=== PATIENT | male | born 1950 | race Caucasian/White ===

== ENCOUNTER → 2020-05-19 | Outpatient (CLI) | payer BC, MEDICARE ==
[~2020-05-19] MED LIST: ADALAT CC30 MG PO; ADALAT CC60 MG PO; ALBUTEROL2.5 MG/3 M INH; ALL DAY ALLERGY10 MG PO; AMARYL1 MG PO; ASMANEX HFA13 GM INH; ASPIRIN EC81 MG PO; CHLORTHALIDONE50 MG PO; CLARITIN10 MG PO; CLOPIDOGREL75 MG PO; COREG 25MG TAB25 MG PO; COZAAR 25MG TAB25 MG PO; DAPSONE100 MG PO; DICLOFENAC 1.5%; DUREZOL5 ML OP; EPIVIR10 MG/1 ML PO; FLONASE 0.05% N16 GM; FLORINEF 0.1 M0.1 MG PO; GLUCO BURST37.5 GM PO; HUMALOG100 UNIT/2 SQ; HUMALOG100 UNIT/3 SQ; HYGROTON TAB 2525 MG PO; LANSOPRAZOLE30 MG PO; LASIX40 MG PO; METOPROLOL SUCC25 MG PO; NORCO 5-325 TA1 EACH PO; ONDANSETRON ODT4 MG PO; PRAVACHOL20 MG PO; PREVACID30 MG PO; PRINIVIL10 MG PO; PROAIR DIGIHAL90 MCG INH; PROAIR HFA8.5 GM INH; PULMICORT FLE180 MCG INH; TIVICAY50 MG PO; VALCYTE50 MG/1 ML PO; VENTOLIN HFA 66.7 GM INH; VITAMIN D250000 UNIT PO; ZIAGEN300 MG PO; ZOFRAN ODT 4 MG4 MG PO; ZOFRAN ODT 4 MG4 MG SL; ZOLOFT50 MG PO; ZYLOPRIM 100 M100 MG PO; ZYRTEC-D TABLE1 EACH PO; [UNRECOGNIZED DRUG - CODE] INJ; [UNRECOGNIZED DRUG - OTHER]
== END ==
LOC: HEART 5 05-18 08:00
DX: I20.9 Angina pectoris, unspecified (principal)
CPT/HCPCS: 78452; 93306; A9502; J2785

== ENCOUNTER 2020-07-19 23:12 | Emergency (ER) | payer BC, MEDICARE ==
[~2020-07-19 23:12] MED LIST changes: -ZOFRAN ODT 4 MG4 MG PO
[2020-07-20] MEDS ORDERED: ZOFRAN ODT 4 MG4 MG PO (11:39)
== END 2020-07-20 00:57 | disposition left against medical advice (07) ==
LOC: ER1 23:12
DX: Z53.21 Procedure and treatment not carried out due to patient leaving prior to being seen by health care provider (principal)

== ENCOUNTER 2020-07-20 08:42 | Emergency (ER) | payer BC, MEDICARE ==
[2020-07-20 09:25] LABS: HEMOGLOBIN 9.8 gm/dl (14.0-17.5); RED BLOOD COUNT 3.08 M/UL (4.20-5.50); WHITE BLOOD COUNT 3.3 K/UL (4.5-11.0)
[2020-07-20] MEDS ORDERED: ZOFRAN ODT 4 MG4 MG PO (11:39)
== END 2020-07-20 11:55 | disposition home or self-care (01) ==
LOC: ER1 08:42
PROVIDERS: Emergency Medicine
DX: I12.0 Hypertensive chronic kidney disease with stage 5 chronic kidney disease or end stage renal disease (principal); N18.6 End stage renal disease; E11.22 Type 2 diabetes mellitus with diabetic chronic kidney disease; Z99.2 Dependence on renal dialysis; Z95.1 Presence of aortocoronary bypass graft; Z95.5 Presence of coronary angioplasty implant and graft
CPT/HCPCS: 71046; 74018; 80053; 82150; 83690; 85025; 99284; J1642